=== PATIENT | female | born 1990 | race Caucasian/White ===

== ENCOUNTER 2018-02-01 06:42 | Inpatient (IN) | payer OTHER ==
[2018-02-01] MEDS ORDERED: LIDOCAINE 1% (MPF) 30 ML INJ INJ (08:30)
[2018-02-01] MEDS ORDERED: METHYLERGONOVINE 0.2 MG INJ IM (08:30)
[2018-02-01] MEDS ORDERED: BUTORPHANOL 2 MG INJ IV (08:30)
[2018-02-01] MEDS ORDERED: OXYTOCIN 30 UNITS/LR 500 ML IV ×2 (08:30)
[2018-02-01] MEDS: LACTATED RINGER'S 1,000 ML IV (08:48)
[2018-02-01 08:49] LABS: WHITE BLOOD COUNT 7.7 10^3/ul (4.8-10.8)
[2018-02-01 08:49] LABS: ABNORMAL IP MESSAGE 1; HEMATOCRIT 31.2 % (37.0-47.0); HEMOGLOBIN 10.2 g/dl (12.0-16.0); MEAN CORPUSCULAR HEMOGLOBIN 25.1 pg (29.0-33.0); MEAN CORPUSCULAR HGB CONC 32.7 g/dl (32.0-37.0); MEAN CORPUSCULAR VOLUME 76.8 fl (82.0-101.0); PLATELET COUNT 93 10^3/UL (140-415); RED BLOOD COUNT 4.06 10^6/ul (4.20-5.40); RED CELL DISTRIBUTION WIDTH 15.1 % (11.5-14.5)
[2018-02-01 08:51] LABS: ADD MAN DIFF? YES; POSITIVE DIFF @See below
[2018-02-01 09:06] LABS: INR 0.84; PARTIAL THROMBOPLASTIN TIME 29.9 Sec (25.0-35.0); PROTIME 11.6 Sec (11.9-14.9); PT RATIO 0.9
[2018-02-01 09:09] LABS: GLUCOSE 65 mg/dl (70-220)
[2018-02-01] MEDS: DEXTROSE 5%-LR 1,000 ML IV ×2 (09:29→17:49)
[2018-02-01 09:38] LABS: HEPATITIS B SURFACE ANTIGEN NEGATIVE (NEGATIVE)
[2018-02-01 09:41] LABS: ANISOCYTOSIS 1+ (0-0); BAND NEUTROPHILS #M 0.4 10^3/ul (0.0-0.6); BAND NEUTROPHILS % (M) 6 % (0-4); EOSINOPHILS % (M) 2 % (0-7); GIANT THROMBO% (M) 3 % (0-0); LYMPHOCYTES #M 2.2 10^3/ul (0.8-2.9); LYMPHOCYTES % (M) 29 % (15-51); METAMYELOCYTES #M 0.1 10^3/ul (0.0-0.0); METAMYELOCYTES %M 2 % (0-0); MICROCYTOSIS 2+ (0-0); MONOCYTE #M 0.3 10^3/ul (0.3-0.9); MONOCYTES % (M) 4 % (0-11); MYELOCYTES % (M) 1 % (0-0); PLATELET ESTIMATE DECREASED; POIKILOCYTOSIS 1+ (0-0); POLYCHROMASIA 1+ (0-0); ROULEAU 1+ (0-0); SEG NEUT #M 4.3 10^3/ul (1.6-7.5); SEGMENTED NEUTROPHILS (M) % 55 % (39-77); SMUDGE%M 3 % (0-0)
[2018-02-01] MEDS: BUTORPHANOL 2 MG INJ IV ×2 (09:56→18:42)
[2018-02-01] MEDS: OXYTOCIN 30 UNITS/LR 500 ML IV (11:05)
[2018-02-01 15:08] LABS: RAPID PLASMA REAGIN NONREACTIVE (NR)
[2018-02-01] MEDS ORDERED: FENTAnyl 2MCG/ML-ROPIV 0.2% 100 ML (20:55)
[2018-02-02] MEDS ORDERED: NALOXONE (0.4 MG/ML) INJ IV
[2018-02-02] MEDS ORDERED: HYDROmorphONE 0.5 MG/0.5 ML SYG IV ×2
[2018-02-02] MEDS ORDERED: FENTAnyl 2MCG/ML-ROPIV 0.2% 100 ML BAG EPI
[2018-02-02] MEDS: ACETAMINOPHEN 325 MG TAB PO (00:47)
[2018-02-02] MEDS: LACTATED RINGER'S 1,000 ML IV (02:20)
[2018-02-02] MEDS ORDERED: AMPICILLIN 2 GM/NS (PMX) 100 ML (03:40)
[2018-02-02] MEDS ORDERED: CEFAZOLIN 2 GM/50 ML (PMX) 50 ML IVPB (03:41)
[2018-02-02] MEDS: GENTAMICIN 120 MG/NS (PMX) 100 ML IVPB (03:42)
[2018-02-02] MEDS: AMPICILLIN 2 GM/NS (PMX) 100 ML IVPB (04:00)
[2018-02-02] MEDS: CEFAZOLIN 2 GM/50 ML (PMX) 50 ML IVPB (04:15)
[2018-02-02] MEDS ORDERED: CHLOROPROCAINE 3% (MPF) 20 ML INJ ×2 (04:15→05:08)
[2018-02-02] MEDS ORDERED: PHENYLephrine (100 MCG/ML) 5ML SYG (04:25)
[2018-02-02] MEDS ORDERED: morphine SULFATE/PF (10 MG/10 ML) INJ (04:27)
[2018-02-02] MEDS ORDERED: FENTAnyl 50 MCG/ML VIAL (05:00)
[2018-02-02] MEDS: CARBOPROST 250 MCG INJ IM (05:57)
[2018-02-02] MEDS ORDERED: DIPHENHYDRAMINE 50 MG INJ IV (06:00)
[2018-02-02] MEDS ORDERED: ONDANSETRON 4 MG INJ IV ×2 (06:00)
[2018-02-02] MEDS ORDERED: HYDROmorphONE (0.2 MG/ML) 10ML SYG IV (06:00)
[2018-02-02] MEDS ORDERED: KETOROLAC 30 MG INJ IV (06:00)
[2018-02-02] MEDS ORDERED: METOCLOPRAMIDE 10 MG INJ IV (06:00)
[2018-02-02] MEDS ORDERED: FENTAnyl 50 MCG/ML VIAL IV ×2 (06:00)
[2018-02-02] MEDS: OXYTOCIN 30 UNITS/LR 500 ML IV ×4 (06:11→22:22)
[2018-02-02] MEDS: MISOPROSTOL 200 MCG TAB PR (06:14)
[2018-02-02] MEDS: HYDROmorphONE (0.2 MG/ML) 10ML SYG IV (06:35)
[2018-02-02] MEDS ORDERED: OXYTOCIN 30 UNITS/LR 500 ML BAG IV (07:00)
[2018-02-02] MEDS ORDERED: AMPICILLIN 1 GM/NS (PMX) 50 ML IVPB (08:00)
[2018-02-02 09:38] LABS: ADD UMIC YES; UR ASCORBIC ACID NEGATIVE (NEGATIVE); UR BACTERIA FEW /HPF (NONE SEEN); UR BILIRUBIN (Dip) NEGATIVE (NEGATIVE); UR BLOOD (Dip) 3+ mg/dL (NEGATIVE); UR CLARITY SLIGHTLY CLOUDY (CLEAR); UR COLOR YELLOW (YELLOW); UR GLUCOSE (Dip) NEGATIVE (NEGATIVE); UR KETONES (Dip) NEGATIVE (NEGATIVE); UR LEUKOCYTE ESTERASE (Dip) NEGATIVE Leu/ul (NEGATIVE); UR MUCUS FEW /HPF (NONE SEEN); UR NITRITE (Dip) NEGATIVE (NEGATIVE); UR RBC 65 /HPF (0-5); UR SPECIFIC GRAVITY (Dip) 1.017 (1.003-1.030); UR TOTAL PROTEIN (Dip) 2+ mg/dl (NEGATIVE); UR UROBILINOGEN (Dip) NEGATIVE (NEGATIVE); UR WBC 4 /HPF (0-5)
[2018-02-02 10:40] LABS: ALANINE AMINOTRANSFERASE 28 IU/L (13-69); ALBUMIN 2.6 g/dl (3.3-4.9); ALBUMIN/GLOBULIN RATIO 0.96; ALKALINE PHOSPHATASE 161 IU/L (42-121); ANION GAP 14 (8-16); ASPARTATE AMINO TRANSFERASE 25 IU/L (15-46); BILIRUBIN,INDIRECT 0.5 mg/dl (0-1.1); BILIRUBIN,TOTAL 0.5 mg/dl (0.2-1.3); BLOOD UREA NITROGEN 10 mg/dl (7-20); CALCIUM 8.1 mg/dl (8.4-10.2); CARBON DIOXIDE 18 mmol/L (21-31); CHLORIDE 112 mmol/L (97-110); GLUCOSE 75 mg/dl (70-220); POTASSIUM 3.6 mmol/L (3.5-5.1); SODIUM 140 mmol/L (135-144); TOTAL PROTEIN 5.3 g/dl (6.1-8.1); URIC ACID 7.5 mg/dl (3.1-7.9)
[2018-02-02] MEDS: CEFAZOLIN 1 GM/50 ML (PMX) 50 ML IVPB ×3 (10:46→18:50)
[2018-02-02] MEDS: MAGNESIUM SULFATE 20 GM/500 ML 500 ML IV (11:37)
[2018-02-02] MEDS ORDERED: CARBOPROST 250 MCG INJ IM (13:30)
[2018-02-02] MEDS ORDERED: OXYTOCIN 30 UNITS/LR 500 ML IV (13:30)
[2018-02-02] MEDS ORDERED: HYDROCODONE/APAP (5/325) TAB PO ×2 (13:30)
[2018-02-02] MEDS ORDERED: OXYCODONE/ACETAMINOPHEN (5/325) TAB PO (13:30)
[2018-02-02] MEDS ORDERED: METHYLERGONOVINE 0.2 MG INJ IM (13:30)
[2018-02-02] MEDS ORDERED: MISOPROSTOL 200 MCG TAB PR (13:30)
[2018-02-02] MEDS: KETOROLAC 30 MG INJ IV ×2 (15:40→22:10)
[2018-02-02] MEDS: DIPHENHYDRAMINE 50 MG INJ IV (16:27)
[2018-02-02 16:44] LABS: ADD UMIC YES; UR ASCORBIC ACID NEGATIVE (NEGATIVE); UR BACTERIA FEW /HPF (NONE SEEN); UR BILIRUBIN (Dip) NEGATIVE (NEGATIVE); UR BLOOD (Dip) 2+ mg/dL (NEGATIVE); UR CLARITY SLIGHTLY CLOUDY (CLEAR); UR COLOR YELLOW (YELLOW); UR GLUCOSE (Dip) NEGATIVE (NEGATIVE); UR KETONES (Dip) 1+ mg/dL (NEGATIVE); UR LEUKOCYTE ESTERASE (Dip) NEGATIVE Leu/ul (NEGATIVE); UR NITRITE (Dip) NEGATIVE (NEGATIVE); UR RBC 23 /HPF (0-5); UR TOTAL PROTEIN (Dip) NEGATIVE (NEGATIVE); UR UROBILINOGEN (Dip) NEGATIVE (NEGATIVE); UR WBC 3 /HPF (0-5)
[2018-02-02 17:06] LABS: ADD MAN DIFF? NO
[2018-02-02 17:09] LABS: ABNORMAL IP MESSAGE 1; BASOPHILS % 0.2 % (0.0-2.0); EOSINOPHILS % 0.1 % (0.0-7.0); HEMATOCRIT 28.5 % (37.0-47.0); HEMOGLOBIN 9.7 g/dl (12.0-16.0); LYMPHOCYTES # 1.3 10^3/ul (0.8-2.9); LYMPHOCYTES % 14.2 % (15.0-51.0); MEAN CORPUSCULAR HEMOGLOBIN 26.2 pg (29.0-33.0); MEAN PLATELET VOLUME 13.4 fl (7.4-10.4); MONOCYTE # 0.6 10^3/ul (0.3-0.9); MONOCYTES % 6.6 % (0.0-11.0); NEUTROPHIL # 6.9 10^3/ul (1.6-7.5); NEUTROPHILS % 78.2 % (39.0-77.0); PLATELET COUNT 84 10^3/UL (140-415); RED CELL DISTRIBUTION WIDTH 15.1 % (11.5-14.5)
[2018-02-02 17:09] LABS: WHITE BLOOD COUNT 8.9 10^3/ul (4.8-10.8)
[2018-02-02 17:25] LABS: POSITIVE DIFF @See below
[2018-02-02 17:26] LABS: ALANINE AMINOTRANSFERASE 31 IU/L (13-69); ALBUMIN 2.6 g/dl (3.3-4.9); ALBUMIN/GLOBULIN RATIO 0.96; ALKALINE PHOSPHATASE 155 IU/L (42-121); ANION GAP 15 (8-16); ASPARTATE AMINO TRANSFERASE 31 IU/L (15-46); BILIRUBIN,INDIRECT 0.5 mg/dl (0-1.1); BILIRUBIN,TOTAL 0.5 mg/dl (0.2-1.3); BLOOD UREA NITROGEN 10 mg/dl (7-20); CALCIUM 7.8 mg/dl (8.4-10.2); CARBON DIOXIDE 17 mmol/L (21-31); CHLORIDE 107 mmol/L (97-110); CREATININE 0.81 mg/dl (0.44-1.00); GLUCOSE 72 mg/dl (70-220); POTASSIUM 3.4 mmol/L (3.5-5.1); SODIUM 136 mmol/L (135-144); TOTAL PROTEIN 5.3 g/dl (6.1-8.1)
[2018-02-02] MEDS: SENNA/DOCUSATE NA (8.6MG/50MG) TAB PO (21:34)
[2018-02-02] MEDS: LANOLIN 7 GM TUBE TOP (22:09)
[2018-02-03 00:37] LABS: MAGNESIUM 3.8 mg/dl (1.7-2.5)
[2018-02-03] MEDS: OXYTOCIN 30 UNITS/LR 500 ML IV (01:30)
[2018-02-03] MEDS: MAGNESIUM SULFATE 20 GM/500 ML 500 ML IV ×2 (02:27→22:27)
[2018-02-03] MEDS: CEFAZOLIN 1 GM/50 ML (PMX) 50 ML IVPB (03:58)
[2018-02-03] MEDS: OXYCODONE/ACETAMINOPHEN (5/325) TAB PO ×3 (05:13→14:57)
[2018-02-03 06:55] LABS: ADD MAN DIFF? NO
[2018-02-03 07:00] LABS: ABNORMAL IP MESSAGE 1; BASOPHILS % 0.3 % (0.0-2.0); EOSINOPHILS # 0.1 10^3/ul (0.0-0.5); EOSINOPHILS % 0.8 % (0.0-7.0); HEMATOCRIT 26.7 % (37.0-47.0); HEMOGLOBIN 8.9 g/dl (12.0-16.0); LYMPHOCYTES # 1.4 10^3/ul (0.8-2.9); LYMPHOCYTES % 18.9 % (15.0-51.0); MEAN CORPUSCULAR HEMOGLOBIN 25.5 pg (29.0-33.0); MEAN CORPUSCULAR HGB CONC 33.3 g/dl (32.0-37.0); MEAN CORPUSCULAR VOLUME 76.5 fl (82.0-101.0); MEAN PLATELET VOLUME 13.2 fl (7.4-10.4); MONOCYTE # 0.4 10^3/ul (0.3-0.9); MONOCYTES % 5.6 % (0.0-11.0); NEUTROPHIL # 5.3 10^3/ul (1.6-7.5); NEUTROPHILS % 73.7 % (39.0-77.0); RED BLOOD COUNT 3.49 10^6/ul (4.20-5.40); RED CELL DISTRIBUTION WIDTH 15.6 % (11.5-14.5)
[2018-02-03 07:00] LABS: WHITE BLOOD COUNT 7.2 10^3/ul (4.8-10.8)
[2018-02-03 07:02] LABS: POSITIVE DIFF @See below
[2018-02-03 07:03] LABS: PLATELET COUNT 79 10^3/UL (140-415)
[2018-02-03] MEDS: SENNA/DOCUSATE NA (8.6MG/50MG) TAB PO ×2 (09:00→21:50)
[2018-02-03 11:49] LABS: COLLECTION PERIOD 24 hrs
[2018-02-03 12:18] LABS: VOLUME 1800 mls
[2018-02-03 12:22] LABS: COLLECTION PERIOD 24 hrs; CREATININE CLEARANCE 109.9 mls/min (84.0-162.0); CREATININE,URINE RANDOM 71.24 mg/dl (20-320); SCRET 0.81 mg/dl (0.44-1.00); VOLUME 1800 ml/24hrs
[2018-02-03] MEDS: IBUPROFEN 600 MG TAB PO ×2 (12:30→17:53)
[2018-02-04] MEDS: IBUPROFEN 600 MG TAB PO ×5 (00:22→23:46)
[2018-02-04] MEDS: OXYCODONE/ACETAMINOPHEN (5/325) TAB PO ×2 (05:48→21:30)
[2018-02-04] MEDS: SENNA/DOCUSATE NA (8.6MG/50MG) TAB PO ×2 (09:51→21:30)
[2018-02-05] MEDS: IBUPROFEN 600 MG TAB PO ×2 (05:42→11:28)
[2018-02-05] MEDS: SENNA/DOCUSATE NA (8.6MG/50MG) TAB PO (09:26)
[2018-02-05] MEDS: DIPHTH/TET/ACEL PERTUSS (ADULT) 0.5 ML VIAL IM* (09:27)
== END 2018-02-05 12:25 | disposition home or self-care (01) | DRG 766 ==
LOC: OBT 06:42 → L-D 06:45 → OBT 07:57 → L-D 02-02 07:29 → PP1 02-02 13:01
PROVIDERS: Obstetrics & Gynecology
PROC: 10D00Z1 Extraction of Products of Conception, Low, Open Approach (ICD-10-PCS; principal; 2018-02-02 04:00)
DX: O41.1230 Chorioamnionitis, third trimester, not applicable or unspecified (principal); O76 Abnormality in fetal heart rate and rhythm complicating labor and delivery; O66.9 Obstructed labor, unspecified; O62.1 Secondary uterine inertia; Z37.0 Single live birth; O69.1XX0 Labor and delivery complicated by cord around neck, with compression, not applicable or unspecified; Z3A.39 39 weeks gestation of pregnancy
CPT/HCPCS: 62319; 76815; 80053; 81001; 82575; 82947; 82962; 83735; 84156; 84560; 85025; 85610; 85730; 86592; 86900; 86901; 87070; 87075; 87340; 88307; 94760; 99464; J2400